=== PATIENT | female | born 1980 | race African-American/Black ===

== ENCOUNTER 2021-04-29 09:43 | Observation (INO) ==
[2021-04-29 11:04] LABS: Basophils # 0.1 10*3/uL (0.0-0.2); Basophils % 1.3 % (0.0-0.8); Eosinophils # 0.3 10*3/uL (0.0-0.87); Eosinophils % 3.3 % (0.00-10.9); Hematocrit 24.5 VOL% (35.7-47.0); Immature Granulocytes % 0.2 %; Immature Granulocytes Absolute 0.02 #; Lymphocytes # 2.3 10*3/uL (1.4-4.0); Lymphocytes % 26.7 % (21.3-54.2); Mean Corpuscular HGB Conc 26.9 GM/DL (32-36); Monocytes % 9.6 % (1.7-12.7); Neutrophils % 58.9 % (38.7-73.9); Platelet Count 605 T/CUMM (130-400); Red Blood Count 3.83 MC/CUMM (3.8-5.5); Red Cell Distribution Width 20.3 % (9.3-17.3); White Blood Count 8.4 T/CUMM (4-12)
[2021-04-29 11:05] LABS: Hemoglobin 6.6 GM/DL (12.0-16.0)
[2021-04-29] MEDS ORDERED: cloNIDine 0.1 MG TABLET PO STA ×2 (11:25→11:28)
[2021-04-29 13:59] LABS: Albumin 3.2 G/DL (3.4-5.0); Bilirubin,Total 0.4 MG/DL (0.2-1.0); Calcium 8.2 MG/DL (8.5-10.1); High Sensitive Troponin I* 53.1 ng/L (0-54); Osmolality,Calculated 276.4 MOS/KG (273-304); Potassium 3.3 MMOL/L (3.5-5.1); Total Protein 7.2 G/DL (6.4-8.2)
[2021-04-29] MEDS ORDERED: DEXTROSE 50% 25 GM/50 ML VIAL IV PRN (14:40)
[2021-04-29] MEDS ORDERED: DOCUSATE SODIUM 100 MG CAPSULE PO PRN (14:40)
[2021-04-29] MEDS ORDERED: GLUCAGON 1 MG VIAL IM PRN (14:40)
[2021-04-29] MEDS ORDERED: ONDANSETRON 4 MG/2 ML VIAL IV PRN (14:40)
[2021-04-29] MEDS ORDERED: SODIUM CHLORIDE 0.9% 1,000 ML IV PRN (14:44)
[2021-04-29] MEDS: BACLOFEN 10 MG TABLET PO SCH ×2 (19:43→20:31)
[2021-04-29] MEDS: PANTOPRAZOLE 40 MG TABLET PO SCH (19:43)
[2021-04-29] MEDS: lisinopriL 10 MG TABLET PO SCH (19:43)
[2021-04-30 04:31] LABS: Basophils # 0.1 10*3/uL (0.0-0.2); Basophils % 0.9 % (0.0-0.8); Eosinophils # 0.4 10*3/uL (0.0-0.87); Eosinophils % 4.3 % (0.00-10.9); Hematocrit 21.4 VOL% (35.7-47.0); Immature Granulocytes % 0.2 %; Immature Granulocytes Absolute 0.02 #; Lymphocytes # 2.5 10*3/uL (1.4-4.0); Lymphocytes % 28.2 % (21.3-54.2); Mean Corpuscular Volume 64.7 FL (87-102); Mean Platelet Volume 9.9 FL (9.6-12.0); Neutrophils % 57.4 % (38.7-73.9); Platelet Count 506 T/CUMM (130-400); Red Blood Count 3.31 MC/CUMM (3.8-5.5); Red Cell Distribution Width 19.8 % (9.3-17.3); White Blood Count 8.7 T/CUMM (4-12)
[2021-04-30 04:49] LABS: Albumin 2.7 G/DL (3.4-5.0); Bilirubin,Total 0.5 MG/DL (0.2-1.0); Calcium 7.9 MG/DL (8.5-10.1); Osmolality,Calculated 275.5 MOS/KG (273-304); Potassium 3.3 MMOL/L (3.5-5.1); Total Protein 6.2 G/DL (6.4-8.2)
[2021-04-30 04:51] LABS: % Iron Saturation 3.5 % (18-50); Ferritin 4.1 ng/ml (8-252)
[2021-04-30 04:55] LABS: Folate 6.96 NG/ML (5.38-24.0); Vitamin B12 465 PG/ML (211-911)
[2021-04-30 05:27] LABS: Hypochromasia 2+
[2021-04-30 05:28] LABS: Elliptocytes Few; Microcytosis 2+; Platelet Estimate Increased
[2021-04-30 06:11] LABS: Sedimentation Rate-Westergren 30 MM/HR (0-20)
[2021-04-30] MEDS ORDERED: CLORAZEPATE 7.5 MG TABLET PO ONE (09:29)
[2021-04-30] MEDS: POTASSIUM CHLORIDE 20 MEQ TABLET PO PRN ×3 (09:57→16:56)
[2021-04-30] MEDS: TRIAMTERENE/HCTZ 37.5-25 MG TABLET PO SCH (09:58)
[2021-04-30] MEDS: FERROUS SULFATE 325 MG TABLET PO SCH ×3 (09:58→21:10)
[2021-04-30] MEDS: lisinopriL 10 MG TABLET PO SCH (09:58)
[2021-04-30] MEDS: BACLOFEN 10 MG TABLET PO SCH ×3 (09:58→21:10)
[2021-04-30] MEDS: PANTOPRAZOLE 40 MG TABLET PO SCH (09:58)
[2021-04-30] MEDS ORDERED: LIDOCAINE/PRILOCAINE CREAM 5 GM TUBE TOP ONE (10:28)
[2021-04-30] MEDS ORDERED: LORazepam 2 MG/1 ML VIAL IM ONE (10:29)
[2021-04-30 18:27] LABS: Hematocrit 27.9 VOL% (35.7-47.0)
[2021-04-30 18:28] LABS: Hemoglobin 8.2 GM/DL (12.0-16.0)
[2021-04-30] MEDS ORDERED: SENNA 8.6 MG TABLET PO SCH (21:00)
[2021-04-30] MEDS: DOCUSATE SODIUM 100 MG CAPSULE PO SCH (21:09)
[2021-04-30] MEDS: POLYETHYLENE GLYCOL POWDER 17 GM PACK PO SCH (21:09)
[2021-05-01 04:52] LABS: Basophils # 0.1 10*3/uL (0.0-0.2); Basophils % 1.3 % (0.0-0.8); Eosinophils # 0.4 10*3/uL (0.0-0.87); Eosinophils % 4.7 % (0.00-10.9); Hematocrit 27.1 VOL% (35.7-47.0); Immature Granulocytes % 0.3 %; Immature Granulocytes Absolute 0.03 #; Lymphocytes # 2.8 10*3/uL (1.4-4.0); Lymphocytes % 30.5 % (21.3-54.2); Mean Corpuscular HGB Conc 29.5 GM/DL (32-36); Mean Corpuscular Volume 68.4 FL (87-102); Mean Platelet Volume 9.9 FL (9.6-12.0); Monocytes % 9.9 % (1.7-12.7); Neutrophils % 53.3 % (38.7-73.9); Platelet Count 479 T/CUMM (130-400); Red Blood Count 3.96 MC/CUMM (3.8-5.5); Red Cell Distribution Width 23.9 % (9.3-17.3); White Blood Count 9.1 T/CUMM (4-12)
[2021-05-01] MEDS ORDERED: LINACLOTIDE 145 MCG CAPSULE PO SCH (07:30)
[2021-05-01 07:38] LABS: Calcium 8.3 MG/DL (8.5-10.1); Osmolality,Calculated 272.7 MOS/KG (273-304); Potassium 3.8 MMOL/L (3.5-5.1)
[2021-05-01 08:15] VITALS: BP 156/99
[2021-05-01] MEDS: POLYETHYLENE GLYCOL POWDER 17 GM PACK PO SCH (09:59)
[2021-05-01] MEDS: TRIAMTERENE/HCTZ 37.5-25 MG TABLET PO SCH (10:00)
[2021-05-01] MEDS: lisinopriL 10 MG TABLET PO SCH (10:00)
[2021-05-01] MEDS: FERROUS SULFATE 325 MG TABLET PO SCH (10:00)
[2021-05-01] MEDS: PANTOPRAZOLE 40 MG TABLET PO SCH (10:00)
[2021-05-01] MEDS: BACLOFEN 10 MG TABLET PO SCH (10:00)
[2021-05-01] MEDS: DOCUSATE SODIUM 100 MG CAPSULE PO SCH (10:00)
[2021-05-02 08:41] LABS: Hemoglobin A1 (Alkaline) 98.5 % (96.5-98.5); Hemoglobin A2 (Alkaline) 1.5 % (1.5-3.5)
== END 2021-05-01 11:11 | disposition home or self-care (01) ==
LOC: N.EDINP 09:43 → N.ED 09:43 → SUATTDRO 14:12 → N.EDINP 17:17 → N.4E 17:39
PROVIDERS: ADMIT Hospitalist; ATTEND Hospitalist